=== PATIENT | female | born 1960 | race Caucasian/White ===

== ENCOUNTER 2017-06-18 14:13 | Outpatient (CLI) | payer OTHER ==
--- NOTE | 2017-06-18 21:47 | RAD ---
LEFT FOOT THREE VIEWS: 06/18/17 No fracture or area of bony destruction was seen. There is some bony spurring between the cuneiforms and metatarsal bases which does correlate somewhat with the site of pain. There are no areas of bony destruction or signs of stress injury. IMPRESSION: Minor bony spurring in the mid foot as described. POS: HOME
== END 2017-06-18 14:14 | disposition home or self-care (01) ==
LOC: BURRAD 14:13
PROVIDERS: ATTEND Physician Assistant
DX: M79.672 Pain in left foot (principal); M77.52 Other enthesopathy of left foot and ankle